=== PATIENT | female | born 1960 | race Caucasian/White ===

== ENCOUNTER → 2017-08-01 | Outpatient (CLI) | payer OTHER | LOC: CIMAGING 09:26 | PROVIDERS: ATTEND Family Medicine | DX: Z12.31 Encounter for screening mammogram for malignant neoplasm of breast (principal); Z80.3 Family history of malignant neoplasm of breast ==

== ENCOUNTER → 2018-08-04 | Outpatient (CLI) | payer OTHER | LOC: CIMAGING 14:44 | PROVIDERS: ATTEND Family Medicine | DX: Z12.31 Encounter for screening mammogram for malignant neoplasm of breast (principal); Z80.3 Family history of malignant neoplasm of breast ==

== ENCOUNTER 2018-08-19 06:39 | Observation (INO) | payer OTHER ==
[2018-08-19] MEDS ORDERED: NS 1,000 ML IV ONE (06:51)
[2018-08-19 07:35] LABS: PLATELET COUNT 291 10^3/uL (150-400)
[2018-08-19 07:44] LABS: INR 0.95 (0.83-1.16); PROTIME(PATIENT) 12.9 SEC (12.0-15.0)
[2018-08-19] MEDS ORDERED: LIDOCAINE 1% 300 MG/30 ML SDV ONE (08:00)
[2018-08-19] MEDS ORDERED: HEPARIN 10,000 UNIT/10 ML MDV (1,000 UNIT/ML) ONE (08:00)
[2018-08-19] MEDS ORDERED: BUPIVACAINE 0.75% 10 ML SDV ONE (08:01)
[2018-08-19] MEDS ORDERED: ISOPROTERENOL HCL/D5W 0.2 MG/50 ML BAG IV ONE (08:01)
[2018-08-19] MEDS ORDERED: MIDAZOLAM 2 MG/2 ML VIAL IVP ONE (08:14)
--- NOTE | 2018-08-19 08:14 | PDANEPAE ---
ANE History of Present Illness 58 yo for eps ANE Past Medical History - Cardiovascular History Hx Hypertension: No Hx Arrhythmias: Yes Hx Chest Pain: No Hx Coronary Artery / Peripheral Vascular Disease: No Hx CHF / Valvular Disease: Yes Hx Palpitations: No - Pulmonary History Hx COPD: No Hx Asthma/Reactive Airway Disease: No Hx Recent Upper Respiratory Infection: No Hx Oxygen in Use at Home: No Hx Sleep Apnea: No ANE Review of Systems Review of Systems: - Exercise capacity METS (RN): 4 METS ANE Patient History - Allergies Allergies/Adverse Reactions: No Known Allergies Allergy (Verified 08/13/18 11:10) - Home Medications Home medications: home medication list seen and reviewed Home Medications: Ascorbic Acid [Vitamin C 500 mg (*)] 1,000 mg PO BID 08/13/18 [Last Taken 3 Days Ago ~08/16/18] Aspirin EC [Aspirin EC 81 mg (*)] 81 mg PO DAILY 08/13/18 [Last Taken 3 Days Ago ~08/16/18] Calcium Carbonate [Oyster Shell Calcium 500 mg (*)] 1,000 mg PO BID 08/13/18 [ Last Taken 3 Days Ago ~08/16/18] Ezetimibe [Zetia 10 MG (*)] 10 mg PO HS 08/13/18 [Last Taken 3 Days Ago ~] Herbals/Supplements -Info Only 1 ea PO DAILY 08/13/18 [Last Taken 3 Days Ago ~] Multivitamins [Multivitamin (*)] 1 each PO DAILY 08/13/18 [Last Taken 08/17/18] [place]-3 Fatty Acids [Fish Oil 1000 mg (*)] 1,000 mg PO DAILY 08/13/18 [Last Taken 3 Days Ago ~08/16/18] Pravastatin Sodium 40 mg PO HS 08/13/18 [Last Taken 3 Days Ago ~08/16/18] - NPO status NPO Status: no food or drink >8 hours - Smoking Hx Smoking Status: Never smoked ANE Labs/Vital Signs - Labs Result Diagrams: 08/19/18 07:15 08/19/18 07:15 - Vital Signs Height: 5 ft Weight: 72.575 kg ANE Physical Exam - Airway Neck exam: FROM Mallampati Score: Class 2 Mouth exam: normal dental/mouth exam - Pulmonary Pulmonary: no respiratory distress - ASA Status ASA Status: II ANE Anesthesia Plan Anesthesia Plan: general endotracheal anesthesia
--- NOTE | 2018-08-19 08:23 | PDGENHP ---
History & Physical Chief Complaint: svt Relevant Physical Exam: s1s2 rrr cta ao3 Cardiorespiratory Assessment: for EPS and ablation if svt inducible
[2018-08-19] MEDS ORDERED: REMIFENTANIL HCL 1 MG VIAL ONE ×2 (08:24→10:37)
[2018-08-19] MEDS ORDERED: PROPOFOL/EMULSION 500 MG/50 ML BOTTLE IV ONE ×2 (08:24→10:37)
[2018-08-19] MEDS ORDERED: fentaNYL 100 MCG/2 ML INJ ONE (08:24)
[2018-08-19] MEDS ORDERED: MIDAZOLAM 2 MG/2 ML VIAL ONE (08:24)
[2018-08-19] MEDS ORDERED: ROCURONIUM 100 MG/10 ML VIAL ONE (08:29)
[2018-08-19] MEDS ORDERED: SUGAMMADEX SODIUM 200 MG/2 ML VIAL IVP ONE (11:06)
[2018-08-19] MEDS ORDERED: NALOXONE HCL 0.4 MG/ML INJ IVP PRN (11:27)
--- NOTE | 2018-08-19 11:28 | POSTANESTH ---
Post Anesthetic Evaluation Cardiovascular Status: Normal, Stable Respiratory Status: Normal, Stable Level of Consciousness/Mental Status: Can Participate in Eval Pain Control: Adequate, Prn Tx Ordered Nausea/Vomiting Control: Adequate, Prn Tx Ordered Complications Possibly Related to Anesthesia: None Noted
--- NOTE | 2018-08-19 11:28 | EPPROC ---
Electrophysiology Procedure Note: ELECTROPHYSIOLOGIC STUDY AND CATHETER MEDIATED ABLATION OF SLOW/FAST AV EVANGELINA REENTRY TACHYCARDIA PROCEDURES PERFORMED: 00969-45 EP evaluation with RA/RV/LA pace/record, with arrhythmia induction 82029-22 EP evaluation with RA/RV pace record, insert/reposition catheter, with arrhythmia induction 16932 Intracardiac catheter ablation, SVT arrhythmogenic focus 23082 3D mapping Fluoroscopy INDICATION: PROCEDURE: Catheters & Anesthesia: The patient arrived in the Electrophysiology Laboratory in the fasting state. The right clavicular region, right groin, and left groin area were prepped and draped in the usual sterile manner. Anesthesiologist Dr. Rolly Sr administered general anesthesia. Appropriate non-invasive blood pressure, pulse oximetry and end-tidal CO2 monitoring was established. All catheters were placed percutaneously using the modified Seldinger technique , and advanced into position under fluoroscopic guidance. One #6 Martiniquais hexapolar non-deflectable electrode catheter was inserted into the right atrial appendage via the left femoral vein (2mm spacing; except the proximal ring which was 25cm from the tip used for unipolar recordings). One #7 Martiniquais deflectable octapolar electrode catheter was advanced to the His-bundle position via the left femoral vein (2mm spacing). One #7 Martiniquais deflectable quadrapolar catheter was advanced to the anteroseptal right ventricle via the right femoral vein. One #7 Martiniquais deflectable catheter with 10 pairs of electrodes was placed via the right femoral vein into the coronary sinus. Heparin was given to keep ACT > 200 s. Programmed stimulation was performed from the right atrium, right ventricle and coronary sinus (left atrium). Parahisian pacing demonstrated constant H-A interval with changing V-A intervals and stimulus-A intervals during capture and loss of capture of proximal RBB proving retrograde conduction over AV node. AVNRT was induced easily during infusion of isoproterenol 2 mcg/min. Ventricular extrastimuli delivered during tachycardia without altering antegrade His bundle activation did not advance next atrial potential, indicating that the tachycardia was not utilizing an accessory pathway for retrograde conduction. VA interval was 20 ms. Post entrainment of the tachycardia from the ventricle, there was VAHV response. Mapping of the right atrium and coronary sinus during AVNRT identified earliest atrial activation above the tendon of Elinor at a level slightly posterior to the level of the His bundle, consistent with retrograde conduction over the fast AV evangelina pathway. A #8 Martiniquais deflectable quadrapolar electrode catheter (2mm-5mm-2mm spacing) with 4 mm tip electrode and sensor for the 3D mapping Carto system was advanced to the right atrium. 3 D mapping of the inter-atrial septum and coronary sinus was performed and location of the AV node was marked. A Mobi sheath was used. RF applications were delivered to the region between the tricuspid annulus and the coronary sinus ostium, at the level of the upper edge of the coronary sinus ostium. Radiofrequency applications were also delivered along the roof of the proximal coronary sinus. Junctional rhythm occurred during all of the RF applications. Programmed stimulation was continued post ablation at baseline and during graded doses of isoproterenol upto 4mcg/min. Sustained AVNRT was not inducible. There were no echo beats. Nonsustained AT, CL 390-520 ms was induced x 2, not targeted for ablation. The catheters were removed. Sheaths were removed in the EP lab after applying subcutaneous purse string suture. The patient was transferred to the cardiovascular holding area in stable condition. There were no apparent complications. Results: A. Spontaneous Intervals: Pre ablation SCL 710 ms AH 75 ms HV 40 ms Post ablation SCL 630 ms AH 65 ms HV 40 ms B. Antegrade AV evangelina function (decremental pacing) Pre ablation FPERP 390 ms WBB CL 380 ms Post ablation FPERP 360 ms WBB CL 350 ms C. Retrograde AV evangelina function (decremental pacing) Pre ablation FPERP 450 ms WBB CL 440 ms D. Arrhythmias: Sustained slow/fast AVNRT Cycle length 340 ms, AH interval 310 ms, NIEVES interval 30 ms VA interval 20 ms CONCLUSIONS 1. 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 ( Slow/fast AVNRT). 2. Successful ablation of the slow AV evangelina pathway with elimination inducibility of AVNRT. 3. Nonsustained atrial tachycardia, not targeted for ablation. 4. No complications. Patient Problems: Problems Problem Status Onset Supraventricular tachycardia Acute
[2018-08-19] MEDS ORDERED: PRAVASTATIN SODIUM 40 MG TAB PO SCH (21:00)
[2018-08-19] MEDS ORDERED: EZETIMIBE 10 MG TAB PO SCH (21:00)
[2018-08-20 04:44] LABS: PLATELET COUNT 238 10^3/uL (150-400)
[2018-08-20 07:56] VITALS: BP 105/75
[2018-08-20] MEDS ORDERED: ASPIRIN 81 MG CHEWABLE TAB PO SCH (09:00)
--- NOTE | 2018-08-20 09:15 | CPEKG ---
Test Reason : OPEN Blood Pressure : / mmHG Vent. Rate : 059 BPM Atrial Rate : 059 BPM P-R Int : 134 ms QRS Dur : 085 ms QT Int : 434 ms P-R-T Axes : 040 -30 040 degrees QTc Int : 430 ms Sinus rhythm Left axis deviation Low voltage, precordial leads Confirmed by Gerardo Henry ([id number]) on 08/20/2018 9:15:16 AM Referred By: Enrique Weston Confirmed By:Gerardo Henry
--- NOTE | 2018-08-20 09:18 | CPEKG ---
Test Reason : OPEN Blood Pressure : / mmHG Vent. Rate : 081 BPM Atrial Rate : 082 BPM P-R Int : 161 ms QRS Dur : 089 ms QT Int : 420 ms P-R-T Axes : 057 -35 032 degrees QTc Int : 488 ms Sinus rhythm Left axis deviation Borderline prolonged QT interval Confirmed by Gerardo Henry ([id number]) on 08/20/2018 9:17:54 AM Referred By: Enrique Weston Confirmed By:Gerardo Henry
--- NOTE | 2018-08-20 10:01 | CPEKG ---
Test Reason : OPEN Blood Pressure : / mmHG Vent. Rate : 063 BPM Atrial Rate : 064 BPM P-R Int : 136 ms QRS Dur : 090 ms QT Int : 424 ms P-R-T Axes : 053 -13 038 degrees QTc Int : 435 ms Sinus rhythm Low voltage, precordial leads Confirmed by Gerardo Henry ([id number]) on 08/20/2018 10:00:32 AM Referred By: Enrique Weston Confirmed By:Gerardo Henry
--- NOTE | 2018-08-20 10:07 | ECHO ---
[email or web address] [address] Main: [phone] Fax: [email or web address] Echocardiogram Name: AMARILYS PITT MR#: [id number] Study Date: 08/20/2018 Study Time: 07:24 AM Date of : 1960 Age: 58 year(s) Height: 152.4 cm (60 in.) Weight: 72.58 kg (160 lb.) BSA: 1.7 m2 Gender: Female Examination: Echo Indication: F/U Post EP Study Image Quality: Adequate Contrast: Requested by: Enrique Weston BP: 90 mmHg/61 mmHg Heart Rate: Rhythm: Indication: F/U Post EP Study Procedure Staff Unit Assembler: Amy Shipman RDCS Reading Physician: Enrique Weston MD Requesting Provider: Conclusions: Normal global systolic LV function. EF is 61 %. Normal diastolic LV function. Bicuspid aortic valve. Mild tricuspid regurgitation is present. Mild pulmonic valve regurgitation is noted. Dilated ascending aorta measuring 4.5 cm. Trivial pericardial effusion. Atherosclerotic plaque noted in ascending aorta. Measurements: Chambers Valvular Assessment AV/MV Valvular Assessment TV/PV Normal Normal Normal Name Value Range Name Value Range Name Value Range Ao Norma (2D): 2.7 cm (1.4 cm-2.6 AV Vmax: 2.27 m/s (1 m/s-1.7 TR Vmax: 2.16 mm/s ( - ) cm) m/s) TR PGmax: 19 mmHg ( - ) IVSd (2D): 0.8 cm (0.6 cm-1.1 AV maxP mmHg ( - ) syst. PAP: 24 mmHg ( - ) cm) AV meanP mmHg ( - ) PV Vmax: 0.75 m/s (0.6 m/s-0.9 LVDd (2D): 4.1 cm (3.9 cm-5.3 SAMUEL (VTI): 1.3 cm ( - ) m/s) cm) MV E Vmax: 0.82 m/s ( - ) PV PGmax: 2 mmHg ( - ) LVDs (2D): 2.6 cm (2.1 cm-4 MV A Vmax: 0.79 m/s ( - ) cm) MV E/A: 1.04 ( - ) LVPWd (2D): 0.8 cm ( - ) MV PHT: 0.046 s ( - ) LVOTd 2.0 cm 2.0 cm mm MVA (PHT): 4.8 s ( - ) LVEF (BP): 61 % (>=55 %) RVDd(2D): 3.6 cm (1.9 cm-3.8 cmmm) Continued Measurements: Chambers Valvular Assessment AV/MV Valvular Assessment TV/PV Patient: AMARILYS PITT Study Date: 08/20/2018 Page 1 of 2 07:24 AM Name Value Name Value Name Value LADs: 3.0 cm MV DecTime: 158 m/s CVP (est.): 5 mmHg LADs Lon.8 cm MV E' Septal: 0.09 m/s LA Area: 12.2 cm2 MV E/E' Septal: 9.30 LA Volume: 36 ml MV E/E' Lateral: 6.80 LA Volume Index: 21.2 ml/m2 RA Area: 12.4 cm2 Additional Vessels Name Value Ao Ascendin.5 cm Inferior Vena Cava: 1.3 cm Findings: Left Ventricle: Normal size left ventricle. No LV hypertrophy. Normal global systolic LV function. EF is 61 %. No regional wall motion abnormality. Normal diastolic LV function. Right Ventricle: Normal size right ventricle. Normal RV function. Left Atrium: The left atrium is normal in size. Right Atrium: The right atrium is normal in size. Mitral Valve: The mitral valve is normal in appearance and function. Trivial to mild mitral regurgitation. No mitral stenosis is present. Aortic Valve: Bicuspid aortic valve. Aortic sclerosis is present. There is no significant aortic valve regurgitation. Mild noncalcific aortic stenosis is present. Mean aortic valve gradient 13. Tricuspid Valve: The tricuspid valve is normal in appearance and function. Mild tricuspid regurgitation is present. The pulmonary artery pressure is normal. Right ventricular systolic pressure measures 24mmHg. Pulmonic Valve: The pulmonic valve is normal in appearance and function. Mild pulmonic valve regurgitation is noted. Aorta: The aorta is normal. Normal size aortic root measuring 2.7 cm. Dilated ascending aorta measuring 4.5 cm. IVC: The IVC is normal sized. Pericardium: Trivial pericardial effusion. No pleural effusion. (No Signature Object) Patient: AMARILYS PITT Study Date: 08/20/2018 Page 2 of 2 07:24 AM [id number]
--- NOTE | 2018-08-21 09:35 | GDS ---
[f rep st] DISCHARGE SUMMARY SUPERVISING MARIONETTE PERFORMER: Enrique Weston MD. ADMISSION DIAGNOSIS: Supraventricular tachycardia. DISCHARGE DIAGNOSIS: Atrioventricular re-entrant maria antonia tachycardia (AVNRT), status post successful. PROCEDURES PERFORMED DURING HOSPITALIZATION: 1. Electrocardiogram. 2. Echocardiogram. 3. Electrophysiology study. 4. Ablation for atrioventricular maria antonia re-entrant tachycardia with successful ablation of the slow a trioventricular maria antonia pathway. HOSPITAL COURSE: Patient presented August 19, 2018, for SVT ablation in the setting of increasingly frequent and symptomatic episodes of SVT. She underwent successful ablation of her slow AV maria antonia pa thway with elimination of AVNRT and without any sustained atrial tachycardia post ablation. She did have inducible nonsustained atrial tachycardia, which was not targeted for ablation. She had no intr a-procedure complications and has done very well in the postprocedure period. She has been ambulatin g around her room and is appropriate and stable for discharge home. CURRENT PHYSICAL EXAMINATION: GENERAL: Alert and oriented x4, no apparent distress. VITAL SIGNS: Blood pressure 95/54, heart rate 70, respiratory rate 14, SpO2 of 94% on room air, temperature 36.8 d egrees Celsius. CARDIAC: Normal S1 and S2. No S3, S4, or murmurs. Rhythm is regular. ABDOMEN: N ormoactive bowel sounds times all 4 quadrants, no masses or tenderness. Abdomen is soft. SKIN: Pin k, warm, dry without cyanosis, clubbing, or peripheral edema. EXTREMITIES: Bilateral pursestring young tures removed intact without evidence of hematoma, redness, oozing, swelling, or warmth. Pulses 2+ b ilaterally. No edema. LABORATORY STUDIES: Drawn today: CBC demonstrates RBCs 3.71, hemoglobin 11, hematocrit 33.3, and is otherwise normal. Troponin is 0.148. BMP is normal compared to the pre-procedure studies. Please note that current hemoglobin, hematocrit, and elevated troponin are to be expected in the postprocedu re setting. PROCEDURES: Electrophysiology study and AVNRT ablation as mentioned above. Preliminary echocardiogr am done this morning demonstrates normal left ventricular systolic function without new wall motion a bnormalities or pericardial effusion. Electrocardiogram done this morning demonstrates normal sinus rhythm without new ST-T wave or MI interval abnormalities. DISCHARGE DISPOSITION: Patient will be discharged home in stable condition. She is under activity r estrictions as below. DISCHARGE MEDICATIONS: Please see discharge medication reconciliation sheet for full details. Jocelyn ellis note that patient has been restarted on her aspirin 81 mg daily, which she will continue for at [facility] the next 6 weeks, although she may continue this medication exterminator termite for management of her de paz ry artery disease. DISCHARGE INSTRUCTIONS: Post AVNRT ablation instructions reviewed with patient in detail. We discus sed activity restrictions including lifting more than 10 pounds and avoidance of submerged bathing fo r 10 days. She will get up and walk around every 45 minutes for 45 days. We also reviewed bleeding precautions, medication compliance, monitoring for signs and symptoms of infection, and monitoring fo r sustained arrhythmia. At the time of discharge, patient verbalizes understanding of all discharge instructions without questions or concerns. She has a followup visit scheduled in 3 weeks, and she w ill contact our clinic with any new or concerning symptoms prior to her upcoming visit. Time spent on discharge greater than 30 minutes. /[id number]/MODL
== END 2018-08-20 11:17 | disposition home or self-care (01) ==
LOC: FCATH 06:39 → F2W 11:23
PROVIDERS: ADMIT Internal Medicine Cardiovascular Disease; ATTEND Internal Medicine Cardiovascular Disease
DX: I47.1 Supraventricular tachycardia (principal); I35.9 Nonrheumatic aortic valve disorder, unspecified; Z79.82 Long term (current) use of aspirin
CPT/HCPCS: 93005; 93306; 93613; 93621; 93623; 93653; C1730; C1732; G0378; C1731; C1766; J1644; J2250; J2704; J3010